=== PATIENT | female | born 1995 | race Caucasian/White ===

== ENCOUNTER 2018-02-25 12:11 | Emergency (ER) | payer OTHER ==
[2018-02-25] MEDS ORDERED: NS(*) 0.9% 1000 ML BAG 1,000 ML IV ONE (12:25)
[2018-02-25] MEDS ORDERED: ONDANSETRON 4 MG/2 ML VIAL IVP ONE (12:25)
[2018-02-25] MEDS ORDERED: TRAZ50TA34 PO (12:27)
[2018-02-25] MEDS ORDERED: ESCI20TA38 PO (12:27)
[2018-02-25] MEDS ORDERED: TOPI-120 PO (12:27)
[2018-02-25] MEDS ORDERED: MINO100C27 PO (12:27)
[2018-02-25] MEDS ORDERED: PANT40SU3 PO (12:27)
[2018-02-25] MEDS ORDERED: ARIP20TA11 PO (12:27)
[2018-02-25] MEDS ORDERED: ETHI1TAB20 PO (12:27)
--- NOTE | 2018-02-25 12:29 | ER Report ---
History and Physical Time Seen By MD: 12:25 HPI/ROS CHIEF COMPLAINT: Abdominal pain nausea HISTORY OF PRESENT ILLNESS: 22-year-old otherwise healthy female comes emergency Department today with pain and tenderness to the suprapubic region right upper quadrant and epigastric area several episodes of emesis only ate saltine crackers today no dysuria hematuria or pyuria scissor pain in the right upper quadrant is dull and aching has had this episodically for the last couple of weeks no fever chills or sweats again nausea without vomiting no diarrhea no loose vomiting movements patient states that she went to an outpatient care facility did some blood work determined she had an elevated lipase of 2000 patient states she's had no history of gallbladder disease or gallbladder disorders denies alcohol use or abuse patient has no additional complaints at this time REVIEW OF SYSTEMS: Respiratory: No cough, no dyspnea. Cardiovascular: No chest pain, no palpitations. Gastrointestinal: Nausea vomiting abdominal pain Musculoskeletal: No back pain. Remainder of the 14 system rev: Yes Allergies: Coded Allergies: Sulfa (Sulfonamide Antibiotics) (Verified Allergy, Intermediate, RASH, 02/25/18) Home Meds Reported Medications Topiramate (TOPAMAX) 50 Mg Tablet, 50 MG PO BID 02/25/18 Pantoprazole Sodium (PROTONIX) 40 Mg Granpkt.dr, 40 MG PO QDAY, PACK 02/25/18 Aripiprazole (ABILIFY) 20 Mg Tablet, 20 MG PO HS, TAB 02/25/18 Minocycline Hcl (MINOCYCLINE HCL) 100 Mg Capsule, 100 MG PO BID, CAPSULE 02/25/18 Trazodone Hcl (TRAZODONE HCL) 50 Mg Tablet, 50 MG PO QHS 02/25/18 Escitalopram Oxalate (LEXAPRO) 20 Mg Tablet, 20 MG PO QDAY, TAB 02/25/18 Ethinyl Estradiol/Drospirenone (OCELLA 3 MG-0.03 MG TABLET) 1 Each Tablet, 1 EACH PO DAILY 02/25/18 Reviewed Nurses Notes: Yes Old Medical Records Reviewed: Yes Constitutional Vital Sign - Last 24 Hours 02/25/18 02/25/18 02/25/18 02/25/18 12:11 12:16 12:17 12:30 Temp 98.3 Pulse 101 72 Resp 12 B/P (MAP) 128/76 (93) 128/76 117/79 (92) Pulse Ox 95 O2 Delivery Room Air 02/25/18 02/25/18 02/25/18 02/25/18 12:41 13:00 13:11 13:16 Pulse 99 91 89 B/P (MAP) 121/61 (81) Pulse Ox 96 100 99 O2 Delivery Room Air Room Air Room Air 02/25/18 02/25/18 02/25/18 02/25/18 13:45 13:46 14:00 14:16 Pulse 82 85 B/P (MAP) 121/78 (92) 114/72 (86) Pulse Ox 98 97 O2 Delivery Room Air Room Air Physical Exam General Appearance: The patient is alert, has no immediate need for airway protection and no current signs of toxicity. [ ] Eyes: Pupils equal and round no injection. Respiratory: Chest is non tender, lungs are clear to auscultation. Cardiac: regular rate and rhythm [ ] Gastrointestinal: Examinations demonstrates pain and tenderness with deep palpation in the right upper quadrant no rebound guarding or masses also pain without palpitation epigastric normal bowel sounds mild tenderness to the suprapubic region otherwise unremarkable examination Musculoskeletal: Neck: Neck is supple and non tender. Extremities have full range of motion and are non tender. Skin: No rashes or lesions. [ ] DIFFERENTIAL DIAGNOSIS: After history and physical exam differential diagnosis was considered for pancreatic has gallstone pancreatitis alcoholic pancreatitis urinary tract infection Medical Decision Making Data Points Result Diagram: 02/25/18 1259 02/25/18 1259 Laboratory Hematology Test 02/25/18 12:59 02/25/18 13:30 Red Blood Count 4.76 M/uL (4.17-5.56) Mean Corpuscular Volume 80.5 fL (80.0-96.0) Mean Corpuscular Hemoglobin 26.7 pg (26.0-33.0) Mean Corpuscular Hemoglobin Concent 33.2 g/dL (32.0-36.0) Red Cell Distribution Width 14.7 % (11.5-14.5) Mean Platelet Volume 8.0 fL (7.2-11.1) Neutrophils (%) (Auto) 64.1 % (39.4-72.5) Lymphocytes (%) (Auto) 23.4 % (17.6-49.6) Monocytes (%) (Auto) 11.5 % (4.1-12.4) Eosinophils (%) (Auto) 0.4 % (0.4-6.7) Basophils (%) (Auto) 0.6 % (0.3-1.4) Nucleated RBC Relative Count (auto) 0.1 /100WBC Neutrophils # (Auto) 5.0 K/uL (2.0-7.4) Lymphocytes # (Auto) 1.8 K/uL (1.3-3.6) Monocytes # (Auto) 0.9 K/uL (0.3-1.0) Eosinophils # (Auto) 0.0 K/uL (0.0-0.5) Basophils # (Auto) 0.0 K/uL (0.0-0.1) Nucleated RBC Absolute Count (auto) 0.01 K/uL Prothrombin Time 13.6 seconds (12.0-14.4) Prothromb Time International Ratio 1.04 Activated Partial Thromboplast Time 24 seconds (23-35) Sodium Level 138 mmol/L (137-145) Potassium Level 2.9 mmol/L (3.5-5.0) Chloride Level 106 mmol/L (98-107) Carbon Dioxide Level 22 mmol/L (22-31) Blood Urea Nitrogen 13 mg/dl (7-18) Creatinine 1.00 mg/dl (0.52-1.04) Glomerular Filtration Rate Calc > 60.0 Random Glucose 84 mg/dl (75-110) Calcium Level 8.1 mg/dl (8.4-10.2) Total Bilirubin 0.2 mg/dl (0.2-1.3) Aspartate Amino Transf (AST/SGOT) 22 U/L (0-35) Alanine Aminotransferase (ALT/SGPT) 36 U/L (0-56) Alkaline Phosphatase 98 U/L (0-126) Total Protein 5.6 g/dl (6.3-8.2) Albumin 2.9 g/dl (3.5-5.0) Lipase 1639 U/L (23-300) Serum Alcohol < 10 mg/dl Urine Color Pallavi Urine Clarity Slightly-cloudy Urine pH 5.0 pH (4.8-9.5) Urine Specific [place] 1.019 Urine Protein Negative mg/dL (NEGATIVE) Urine Glucose (UA) Negative mg/dL (NEGATIVE) Urine Ketones 20 mg/dL (NEGATIVE) Urine Blood Moderate (NEGATIVE) Urine Nitrite Negative (NEGATIVE) Urine Bilirubin Negative (NEGATIVE) Urine Urobilinogen Negative mg/dL (0.2-1.9) Urine Leukocyte Esterase Negative (NEGATIVE) Urine RBC 23 /HPF (0-2/HPF) Urine WBC 5 /HPF (0-5/HPF) Urine Squamous Epithelial Cells Many /LPF (</=FEW) Urine Transitional Epithelial Cells Few /LPF (NONE-FEW) Urine Bacteria Few /HPF (NONE-FEW) Urine Mucus Few /HPF (NONE-FEW) Urine HCG, Qualitative Negative (NEGATIVE) Chemistry Test 02/25/18 12:59 02/25/18 13:30 White Blood Count 7.8 k/uL (4.5-11.0) Red Blood Count 4.76 M/uL (4.17-5.56) Hemoglobin 12.7 g/dL (12.0-16.0) Hematocrit 38.3 % (34.0-47.0) Mean Corpuscular Volume 80.5 fL (80.0-96.0) Mean Corpuscular Hemoglobin 26.7 pg (26.0-33.0) Mean Corpuscular Hemoglobin Concent 33.2 g/dL (32.0-36.0) Red Cell Distribution Width 14.7 % (11.5-14.5) Platelet Count 284 K/uL (150-450) Mean Platelet Volume 8.0 fL (7.2-11.1) Neutrophils (%) (Auto) 64.1 % (39.4-72.5) Lymphocytes (%) (Auto) 23.4 % (17.6-49.6) Monocytes (%) (Auto) 11.5 % (4.1-12.4) Eosinophils (%) (Auto) 0.4 % (0.4-6.7) Basophils (%) (Auto) 0.6 % (0.3-1.4) Nucleated RBC Relative Count (auto) 0.1 /100WBC Neutrophils # (Auto) 5.0 K/uL (2.0-7.4) Lymphocytes # (Auto) 1.8 K/uL (1.3-3.6) Monocytes # (Auto) 0.9 K/uL (0.3-1.0) Eosinophils # (Auto) 0.0 K/uL (0.0-0.5) Basophils # (Auto) 0.0 K/uL (0.0-0.1) Nucleated RBC Absolute Count (auto) 0.01 K/uL Prothrombin Time 13.6 seconds (12.0-14.4) Prothromb Time International Ratio 1.04 Activated Partial Thromboplast Time 24 seconds (23-35) Glomerular Filtration Rate Calc > 60.0 Calcium Level 8.1 mg/dl (8.4-10.2) Total Bilirubin 0.2 mg/dl (0.2-1.3) Aspartate Amino Transf (AST/SGOT) 22 U/L (0-35) Alanine Aminotransferase (ALT/SGPT) 36 U/L (0-56) Alkaline Phosphatase 98 U/L (0-126) Total Protein 5.6 g/dl (6.3-8.2) Albumin 2.9 g/dl (3.5-5.0) Lipase 1639 U/L (23-300) Serum Alcohol < 10 mg/dl Urine Color Pallavi Urine Clarity Slightly-cloudy Urine pH 5.0 pH (4.8-9.5) Urine Specific [place] 1.019 Urine Protein Negative mg/dL (NEGATIVE) Urine Glucose (UA) Negative mg/dL (NEGATIVE) Urine Ketones 20 mg/dL (NEGATIVE) Urine Blood Moderate (NEGATIVE) Urine Nitrite Negative (NEGATIVE) Urine Bilirubin Negative (NEGATIVE) Urine Urobilinogen Negative mg/dL (0.2-1.9) Urine Leukocyte Esterase Negative (NEGATIVE) Urine RBC 23 /HPF (0-2/HPF) Urine WBC 5 /HPF (0-5/HPF) Urine Squamous Epithelial Cells Many /LPF (</=FEW) Urine Transitional Epithelial Cells Few /LPF (NONE-FEW) Urine Bacteria Few /HPF (NONE-FEW) Urine Mucus Few /HPF (NONE-FEW) Urine HCG, Qualitative Negative (NEGATIVE) Coagulation Test 02/25/18 12:59 Prothrombin Time 13.6 seconds Prothromb Time International Ratio 1.04 Activated Partial Thromboplast Time 24 seconds Toxicology Test 02/25/18 12:59 Serum Alcohol < 10 mg/dl Urinalysis Test 02/25/18 13:30 Urine Color Pallavi Urine Clarity Slightly-cloudy Urine pH 5.0 pH (4.8-9.5) Urine Specific [place] 1.019 Urine Protein Negative mg/dL (NEGATIVE) Urine Glucose (UA) Negative mg/dL (NEGATIVE) Urine Ketones 20 mg/dL (NEGATIVE) Urine Blood Moderate (NEGATIVE) Urine Nitrite Negative (NEGATIVE) Urine Bilirubin Negative (NEGATIVE) Urine Urobilinogen Negative mg/dL (0.2-1.9) Urine Leukocyte Esterase Negative (NEGATIVE) Urine RBC 23 /HPF (0-2/HPF) Urine WBC 5 /HPF (0-5/HPF) Urine Squamous Epithelial Cells Many /LPF (</=FEW) Urine Transitional Epithelial Cells Few /LPF (NONE-FEW) Urine Bacteria Few /HPF (NONE-FEW) Urine Mucus Few /HPF (NONE-FEW) Urine HCG, Qualitative Negative (NEGATIVE) ED Course/Re-evaluation ED Course Clinical course medical decision making 22-year-old female with abdominal discomfort no sign of UTI she does have colitis confirmed on a CT scan and elevated lipase consistent with idiopathic pancreatitis advised her to to decreased by mouth intake clear fluids she's able to tolerate by mouth started on Flagyl for her colitis and follow with primary care Decision to Disposition Date: Feb 25, 2018 Decision to Disposition Time: 15:02 Depart Departure Latest Vital Signs Vital Signs Date Time Temp Pulse Resp B/P (MAP) Pulse Ox O2 Delivery O2 Flow Rate FiO2 02/25/18 14:16 85 97 Room Air 02/25/18 14:00 114/72 (86) 02/25/18 12:17 98.3 12 Impression: Primary Impression: Pancreatitis Additional Impression: Colitis Condition: Improved Disposition: HOME OR SELF-CARE Referrals: LISA PETERS [employer] 5 Days New Scripts Metronidazole (FLAGYL) 500 Mg Tablet 500 MG PO BID for 7 Days, #14 TAB Prov: BERTO NÚÑEZ MD 02/25/18 Patient Instructions: Colitis (ED), Pancreatitis (DC) Problem Qualifiers BERTO NÚÑEZ MD Feb 25, 2018 12:29
[2018-02-25 13:12] LABS: PLATELET COUNT, AUTOMATED 284 K/uL (150-450)
[2018-02-25 13:23] LABS: INR 1.04
[2018-02-25] MEDS ORDERED: NS(*) 0.9% 1000 ML BAG 1,000 ML IV PRN (13:30)
[2018-02-25] MEDS ORDERED: POTASSIUM CHL 20 MEQ TABCR PO ONE (13:35)
--- NOTE | 2018-02-25 13:47 | RADIOLOGY IMAGING REPORT ---
FACILITY: [facility] - [place] PATIENT NAME: Samra Vogel : 1995 MR: [id number] V: [id number] EXAM DATE: ORDERING PHYSICIAN: BERTO NÚÑEZ TECHNOLOGIST: Location: [facility] - [place] Patient: Samra Vogel : 1995 Visit/Account:[id number] Date of Sevice: 02/25/2018 GALLBLADDER HISTORY: pain COMPARISON: None. FINDINGS: Gallbladder: Unremarkable; no stones or sludge. Liver: Negative. Common duct: Normal, 2.8 mm diameter. Pancreas: Partially obscured by bowel, visualized aspects unremarkable. Right kidney: Right kidney appears unremarkable measuring 8.7 cm in length Upper abdominal aorta and IVC: Patent. Ascites: None visualized. IMPRESSION: Unremarkable right upper quadrant ultrasound Report Dictated By: Fouzia Carrizales MD at 02/25/2018 1:41 PM Report E-Signed By: Fouzia Carrizales MD at 02/25/2018 1:43 PM WSN:[email or web address]
[2018-02-25 14:00] VITALS: BP 114/72
--- NOTE | 2018-02-25 14:07 | RADIOLOGY IMAGING REPORT ---
FACILITY: [facility] PATIENT NAME: Samra Vogel : 1995 MR: [id number] V: [id number] EXAM DATE: ORDERING PHYSICIAN: BERTO NÚÑEZ TECHNOLOGIST: Location: [facility] - [place] Patient: Samra Vogel : 1995 Visit/Account:[id number] Date of Sevice: 02/25/2018 Exam type: CHEST PA AND LAT History: Abdomen pain Comparison: None. Findings: The lungs are free of acute effusions, infiltrates or edema. Cardiac silhouette is normal in size. The trachea is midline. Visualized bones are grossly unremarkable. IMPRESSION: 1. No acute cardiopulmonary process is seen Report Dictated By: Fouzia Carrizales MD at 02/25/2018 2:02 PM Report E-Signed By: Fouzia Carrizales MD at 02/25/2018 2:02 PM WSN:[email or web address]
[2018-02-25] MEDS ORDERED: IOPAMIDOL 76% 75 ML INFUS BTL 75 ML ONE (14:24)
--- NOTE | 2018-02-25 14:51 | RADIOLOGY IMAGING REPORT ---
[facility] PATIENT NAME: Samra Vogel : 1995 MR: [id number] V: [id number] EXAM DATE: ORDERING PHYSICIAN: BERTO NÚÑEZ TECHNOLOGIST: Location: [facility] - [place] Patient: Samra Vogel : 1995 Visit/Account:[id number] Date of Sevice: 02/25/2018 ABDOMEN/PELVIS WITH CONTRAST HISTORY: Abdomen pain TECHNIQUE: Following administration of IV contrast contiguous axial images acquired through the abdom en/pelvis. Coronal and sagittal reformatting also performed.Dose Lowering Technique One of the following dose optimization techniques was utilized in the performance of this exam: Autom ated exposure control; adjustment of the mA and/or kV according to the patient's size; or use of an i terative reconstruction technique. Specific details can be referenced in the facility's radiology C T exam operational policy. CONTRAST: 75 mL Isovue-370 COMPARISON: Gallbladder ultrasound performed today FINDINGS: Visualized lung bases: Negative. Hepatobiliary: There is diffuse hepatic steatosis Spleen: Negative. Adrenals: Negative. Pancreas: Negative. Kidneys ureters or bladder: Tiny subcentimeter hypodensities in both kidneys likely represent cysts a lthough are too small to characterize by CT Genitalia: Negative. GI: There is enhancement and thickening of the wall of the colon diffusely which is most prominent i n the right-sided the colon and transverse colon although is present the left-sided colon as well. The appendix is visualized and does not appear inflamed Vessels/spaces/nodes: There shotty retroperitoneal lymph nodes Bones/soft tissues: Negative. Additional findings: None pertinent. IMPRESSION: There is enhancement and wall thickening seen diffusely throughout colon which is most prominent in t he right side and transverse colon although is present in the left-sided colon as well. These findin gs are consistent with colitis. Report Dictated By: Fouzia Carrizales MD at 02/25/2018 2:42 PM Report E-Signed By: Fouzia Carrizales MD at 02/25/2018 2:47 PM WSN:[email or web address]
[2018-02-25] MEDS ORDERED: METR-1 PO (15:03)
== END 2018-02-25 15:15 | disposition home or self-care (01) ==
LOC: EDBD 12:11 → ER 12:28
DX: K85.90 Acute pancreatitis without necrosis or infection, unspecified (principal); K52.9 Noninfective gastroenteritis and colitis, unspecified
CPT/HCPCS: 36415; 71046; 74177; 76705; 80320; 81001; 81025; 83690; 85025; 85610; 85730; 96361; 96374; 99285; J2405; J7030; Q9967; 82040; 82247; 82310; 82374; 82435; 82565; 82947; 84075; 84132; 84155; 84295; 84450; 84460; 84520

== ENCOUNTER 2018-03-01 19:40 | Inpatient (IN) | payer OTHER ==
[~2018-03-01] VITALS: Ht 157.5 cm; Wt 72.1 kg
[~2018-03-01 19:40] MED LIST: ARIP20TA11 PO; ESCI20TA38 PO; ETHI1TAB20 PO; METR-1 PO; MINO100C27 PO; PANT40SU3 PO; TOPI-120 PO; TRAZ50TA34 PO
--- NOTE | 2018-03-01 20:10 | ER Report ---
History and Physical Time Seen By MD: 20:10 Hx. of Stated Complaint: Patient stated she was diagnosed with pancreatitis on Friday, and has had irretractable vomiting starting about 1 hour ago HPI/ROS CHIEF COMPLAINT: Vomiting HISTORY OF PRESENT ILLNESS: 22-year-old female with pancreatitis and colitis, currently taking Flagyl and Zofran presents back to the ER with continued vomiting today. She's been seen at urgent care twice and in the ER once. She was seen here 4 days ago, had an extensive evaluation including a CT scan and an ultrasound. She is diagnosed with colitis and pancreatitis. He was placed on Flagyl. She's been on clear liquid diet until tonight when she tried to advance to some chicken broth. She notes no increase in her abdominal pain. REVIEW OF SYSTEMS: Respiratory: No cough, no dyspnea. Cardiovascular: No chest pain, no palpitations. Gastrointestinal: As above Musculoskeletal: No back pain. Allergies: Coded Allergies: Sulfa (Sulfonamide Antibiotics) (Verified Allergy, Intermediate, RASH, 03/01/18) Home Meds Active Scripts Metronidazole (FLAGYL) 500 Mg Tablet, 500 MG PO BID for 7 Days, #14 TAB Prov:BERTO NÚÑEZ MD 02/25/18 Reported Medications Topiramate (TOPAMAX) 50 Mg Tablet, 50 MG PO BID 02/25/18 Pantoprazole Sodium (PROTONIX) 40 Mg Granpkt.dr, 40 MG PO QDAY, PACK 02/25/18 Aripiprazole (ABILIFY) 20 Mg Tablet, 20 MG PO HS, TAB 02/25/18 Minocycline Hcl (MINOCYCLINE HCL) 100 Mg Capsule, 100 MG PO BID, CAPSULE 02/25/18 Trazodone Hcl (TRAZODONE HCL) 50 Mg Tablet, 50 MG PO QHS 02/25/18 Escitalopram Oxalate (LEXAPRO) 20 Mg Tablet, 20 MG PO QDAY, TAB 02/25/18 Ethinyl Estradiol/Drospirenone (OCELLA 3 MG-0.03 MG TABLET) 1 Each Tablet, 1 EACH PO DAILY 02/25/18 Past Medical/Surgical History Pancreatitis, colitis Reviewed Nurses Notes: Yes Old Medical Records Reviewed: Yes Hx Substance Use Disorder: No Hx Alcohol Use: No Constitutional Vital Sign - Last 24 Hours 03/01/18 03/01/18 03/01/18 03/01/18 19:49 19:50 20:30 21:00 Temp 98.0 Pulse 70 93 67 70 Resp 19 B/P (MAP) 120/67 (84) 120/67 Pulse Ox 97 98 96 98 O2 Delivery Room Air Room Air 03/01/18 03/01/18 21:30 22:11 Pulse 68 71 B/P (MAP) 102/63 (76) Pulse Ox 94 Physical Exam Vital signs stable, afebrile, pulse ox normal General Appearance: The patient is alert, has no immediate need for airway protection and no current signs of toxicity., Pale appearing, skin warm and dry HEENT: Pupils equal and round no injection. Anicteric sclera, oropharynx without redness or exudate, mucous members are moist Respiratory: Chest is non tender, lungs are clear to auscultation. Cardiac: regular rate and rhythm Gastrointestinal: Abdomen is soft and non tender, no masses, bowel sounds normal. Musculoskeletal: Neck: Neck is supple and non tender. No lymphadenopathy Extremities have full range of motion and are non tender. Skin: No rashes or lesions. DIFFERENTIAL DIAGNOSIS: After history and physical exam differential diagnosis was considered for abdominal pain including but not limited to appendicitis, cholecystitis, gastritis, pancreatitis, colitis and urinary tract infection. Medical Decision Making Data Points Result Diagram: 03/01/18203903/01/182039 Laboratory Hematology Test 03/01/18 19:48 03/01/18 20:40 Urine Color Pallavi Urine Clarity Clear Urine pH 5.0 pH (4.8-9.5) Urine Specific [place] 1.023 Urine Protein Negative mg/dL (NEGATIVE) Urine Glucose (UA) Negative mg/dL (NEGATIVE) Urine Ketones Trace mg/dL (NEGATIVE) Urine Blood Negative (NEGATIVE) Urine Nitrite Negative (NEGATIVE) Urine Bilirubin Negative (NEGATIVE) Urine Urobilinogen Negative mg/dL (0.2-1.9) Urine Leukocyte Esterase Trace (NEGATIVE) Urine RBC None /HPF (0-2/HPF) Urine WBC 6 /HPF (0-5/HPF) Urine Squamous Epithelial Cells Few /LPF (</=FEW) Urine Calcium Oxalate Crystals Few /HPF (NONE) Urine Bacteria Moderate /HPF (NONE-FEW) Urine Mucus Few /HPF (NONE-FEW) Red Blood Count 5.39 M/uL (4.17-5.56) Mean Corpuscular Volume 80.0 fL (80.0-96.0) Mean Corpuscular Hemoglobin 26.8 pg (26.0-33.0) Mean Corpuscular Hemoglobin Concent 33.6 g/dL (32.0-36.0) Red Cell Distribution Width 15.0 % (11.5-14.5) Mean Platelet Volume 8.2 fL (7.2-11.1) Neutrophils (%) (Auto) 75.4 % (39.4-72.5) Lymphocytes (%) (Auto) 14.7 % (17.6-49.6) Monocytes (%) (Auto) 7.5 % (4.1-12.4) Eosinophils (%) (Auto) 0.0 % (0.4-6.7) Basophils (%) (Auto) 2.4 % (0.3-1.4) Nucleated RBC Relative Count (auto) 0.0 /100WBC Neutrophils # (Auto) 6.6 K/uL (2.0-7.4) Lymphocytes # (Auto) 1.3 K/uL (1.3-3.6) Monocytes # (Auto) 0.7 K/uL (0.3-1.0) Eosinophils # (Auto) 0.0 K/uL (0.0-0.5) Basophils # (Auto) 0.2 K/uL (0.0-0.1) Nucleated RBC Absolute Count (auto) 0.00 K/uL Peripheral Blood Smear Yes Y/N Erythrocyte Sedimentation Rate 5 mm/HOUR (0-20) Sodium Level 140 mmol/L (137-145) Potassium Level 3.3 mmol/L (3.5-5.0) Chloride Level 109 mmol/L (98-107) Carbon Dioxide Level 18 mmol/L (22-31) Blood Urea Nitrogen 11 mg/dl (7-18) Creatinine 0.80 mg/dl (0.52-1.04) Glomerular Filtration Rate Calc > 60.0 Random Glucose 94 mg/dl (75-110) Lactate 1.2 mmol/L (0.7-2.1) Calcium Level 8.8 mg/dl (8.4-10.2) Total Bilirubin 0.4 mg/dl (0.2-1.3) Aspartate Amino Transf (AST/SGOT) 28 U/L (0-35) Alanine Aminotransferase (ALT/SGPT) 36 U/L (0-56) Alkaline Phosphatase 107 U/L (0-126) C-Reactive Protein 0.8 mg/dl (<1.0) Total Protein 6.1 g/dl (6.3-8.2) Albumin 3.0 g/dl (3.5-5.0) Amylase Level 215 U/L (0-110) Lipase 2758 U/L (23-300) Chemistry Test 03/01/18 19:48 03/01/18 20:40 Urine Color Pallavi Urine Clarity Clear Urine pH 5.0 pH (4.8-9.5) Urine Specific [place] 1.023 Urine Protein Negative mg/dL (NEGATIVE) Urine Glucose (UA) Negative mg/dL (NEGATIVE) Urine Ketones Trace mg/dL (NEGATIVE) Urine Blood Negative (NEGATIVE) Urine Nitrite Negative (NEGATIVE) Urine Bilirubin Negative (NEGATIVE) Urine Urobilinogen Negative mg/dL (0.2-1.9) Urine Leukocyte Esterase Trace (NEGATIVE) Urine RBC None /HPF (0-2/HPF) Urine WBC 6 /HPF (0-5/HPF) Urine Squamous Epithelial Cells Few /LPF (</=FEW) Urine Calcium Oxalate Crystals Few /HPF (NONE) Urine Bacteria Moderate /HPF (NONE-FEW) Urine Mucus Few /HPF (NONE-FEW) White Blood Count 8.7 k/uL (4.5-11.0) Red Blood Count 5.39 M/uL (4.17-5.56) Hemoglobin 14.5 g/dL (12.0-16.0) Hematocrit 43.1 % (34.0-47.0) Mean Corpuscular Volume 80.0 fL (80.0-96.0) Mean Corpuscular Hemoglobin 26.8 pg (26.0-33.0) Mean Corpuscular Hemoglobin Concent 33.6 g/dL (32.0-36.0) Red Cell Distribution Width 15.0 % (11.5-14.5) Platelet Count 299 K/uL (150-450) Mean Platelet Volume 8.2 fL (7.2-11.1) Neutrophils (%) (Auto) 75.4 % (39.4-72.5) Lymphocytes (%) (Auto) 14.7 % (17.6-49.6) Monocytes (%) (Auto) 7.5 % (4.1-12.4) Eosinophils (%) (Auto) 0.0 % (0.4-6.7) Basophils (%) (Auto) 2.4 % (0.3-1.4) Nucleated RBC Relative Count (auto) 0.0 /100WBC Neutrophils # (Auto) 6.6 K/uL (2.0-7.4) Lymphocytes # (Auto) 1.3 K/uL (1.3-3.6) Monocytes # (Auto) 0.7 K/uL (0.3-1.0) Eosinophils # (Auto) 0.0 K/uL (0.0-0.5) Basophils # (Auto) 0.2 K/uL (0.0-0.1) Nucleated RBC Absolute Count (auto) 0.00 K/uL Peripheral Blood Smear Yes Y/N Erythrocyte Sedimentation Rate 5 mm/HOUR (0-20) Glomerular Filtration Rate Calc > 60.0 Lactate 1.2 mmol/L (0.7-2.1) Calcium Level 8.8 mg/dl (8.4-10.2) Total Bilirubin 0.4 mg/dl (0.2-1.3) Aspartate Amino Transf (AST/SGOT) 28 U/L (0-35) Alanine Aminotransferase (ALT/SGPT) 36 U/L (0-56) Alkaline Phosphatase 107 U/L (0-126) C-Reactive Protein 0.8 mg/dl (<1.0) Total Protein 6.1 g/dl (6.3-8.2) Albumin 3.0 g/dl (3.5-5.0) Amylase Level 215 U/L (0-110) Lipase 2758 U/L (23-300) Urinalysis Test 03/01/18 19:48 Urine Color Pallavi Urine Clarity Clear Urine pH 5.0 pH (4.8-9.5) Urine Specific [place] 1.023 Urine Protein Negative mg/dL (NEGATIVE) Urine Glucose (UA) Negative mg/dL (NEGATIVE) Urine Ketones Trace mg/dL (NEGATIVE) Urine Blood Negative (NEGATIVE) Urine Nitrite Negative (NEGATIVE) Urine Bilirubin Negative (NEGATIVE) Urine Urobilinogen Negative mg/dL (0.2-1.9) Urine Leukocyte Esterase Trace (NEGATIVE) Urine RBC None /HPF (0-2/HPF) Urine WBC 6 /HPF (0-5/HPF) Urine Squamous Epithelial Cells Few /LPF (</=FEW) Urine Calcium Oxalate Crystals Few /HPF (NONE) Urine Bacteria Moderate /HPF (NONE-FEW) Urine Mucus Few /HPF (NONE-FEW) ED Course/Re-evaluation Clinical Indication for ER IV: Hydration, IV Access ED Course Patient was admitted to an examination room. H&P was done. The differential diagnoses was considered. On conical examination. Patient has continued vomiting and abdominal discomfort. He was diagnosed with mild pancreatitis and colitis. She's been on Flagyl 500 mg twice daily. She states his Zofran no longer is controlling her vomiting. She tried some Benadryl without improvement. She presents to the ER for further evaluation of her persistent vomiting. Patient's treated with IV fluid hydration, Zofran 8 mg and Phenergan 12-05/13. Her vomiting is controlled. She feels much better with fluids. Repeat diagnostic studies show a almost doubling of her lipase 2800, from 1600. Her case is discussed with the hospitalist on-call, who accepts the patient for admission for further IV treatment and bowel rest. 03/01/2018 9:38:10 pm case discussed with Dr. Phillips who accepts the pa tient for admission for IV hydration and bowel rest. Decision to Disposition Date: Mar 01, 2018 Decision to Disposition Time: 21:37 Depart Departure Latest Vital Signs Vital Signs Date Time Temp Pulse Resp B/P (MAP) Pulse Ox O2 Delivery O2 Flow Rate FiO2 03/01/18 22:11 71 102/63 (76) 03/01/18 21:30 94 03/01/18 19:50 98.0 19 Room Air Impression: Primary Impression: Pancreatitis Additional Impressions: Colitis Vomiting Condition: Improved Disposition: HOME OR SELF-CARE Referrals: CAROLINA HANSON (PCP) Problem Qualifiers Primary Impression: Pancreatitis Chronicity: acute Pancreatitis type: unspecified pancreatitis type Acute pancreatitis complication: unspecified Qualified Codes: K85.90 - Acute pancreatitis without necrosis or infection, unspecified Additional Impressions: Vomiting Vomiting type: unspecified Vomiting Intractability: unspecified Nausea presence: with nausea Qualified Codes: R11.2 - Nausea with vomiting, unspecified BART BERGER DO Mar 01, 2018 20:10
[2018-03-01] MEDS ORDERED: ONDANSETRON 4 MG/2 ML VIAL IVP ONE (20:20)
[2018-03-01] MEDS ORDERED: NS(*) 0.9% 1000 ML BAG 1,000 ML IV ONE (20:20)
[2018-03-01] MEDS ORDERED: PROMETHAZINE 25 MG/ML 1 ML AMP IVP ONE (20:20)
[2018-03-01 20:56] LABS: PLATELET COUNT, AUTOMATED 299 K/uL (150-450)
[2018-03-01 22:34] VITALS: BP 108/66
[2018-03-01] MEDS ORDERED: ONDANSETRON 4 MG/2 ML VIAL IVP PRN (23:15)
[2018-03-01] MEDS ORDERED: FLUSH 10 ML SYR IVP PRN (23:15)
[2018-03-01] MEDS ORDERED: NALOXONE HCL 0.4 MG/ML VIAL IVP PRN (23:15)
[2018-03-01] MEDS ORDERED: HYDROmorphone HCL 2 MG/ML SDV IVP PRN (23:15)
[2018-03-01] MEDS ORDERED: INFLUENZA VIRUS VAC 0.5ML SYR IM ONLY ONE (23:15)
[2018-03-02] MEDS: LR(*) 1000 ML BAG 1,000 ML IV PRN ×3 (00:02→22:53)
--- NOTE | 2018-03-02 00:53 | History & Physical ---
History of Present Illness Chief Complaint nausea/vomiting History of Present Illness 22F with PMHx significant for acne, anxiety/depression presented with worsening n/v. Diagnosed 02.25.2018 with pancreatitis, she was able to tolerate PO intake until prior to admission when n/v worsened. Denies significant abdominal pain but lipase approx 2800, CT from prior admission showed changes of acute pancreatitis and lisa colitis. Reports some bloody stool in ER, bouts of occasional diarrhea. Denies any symptoms of biliary colic before presenting with abdominal pain on . Denies EtOH, previous US was negative for stones or ductal dilatation. No family Hx of pancreatitis. History Problems: (1) Depression Home Meds Active Scripts Metronidazole (FLAGYL) 500 Mg Tablet, 500 MG PO BID for 7 Days, #14 TAB Prov:BERTO NÚÑEZ MD 02/25/18 Reported Medications Topiramate (TOPAMAX) 50 Mg Tablet, 50 MG PO BID 02/25/18 Pantoprazole Sodium (PROTONIX) 40 Mg Granpkt.dr, 40 MG PO QDAY, PACK 02/25/18 Aripiprazole (ABILIFY) 20 Mg Tablet, 20 MG PO HS, TAB 02/25/18 Minocycline Hcl (MINOCYCLINE HCL) 100 Mg Capsule, 100 MG PO BID, CAPSULE 02/25/18 Trazodone Hcl (TRAZODONE HCL) 50 Mg Tablet, 50 MG PO QHS 02/25/18 Escitalopram Oxalate (LEXAPRO) 20 Mg Tablet, 20 MG PO QDAY, TAB 02/25/18 Ethinyl Estradiol/Drospirenone (OCELLA 3 MG-0.03 MG TABLET) 1 Each Tablet, 1 EACH PO DAILY 02/25/18 Allergies: Coded Allergies: Sulfa (Sulfonamide Antibiotics) (Verified Allergy, Intermediate, RASH, 03/01/18) Patient History: FH: depression MOTHER FH: heart disease FATHER MOTHER FH: hyperlipidemia MOTHER FH: leukemia BROTHER OR SISTER Hx Smoking: No Exposure to Second Hand Smoke?: No Caffeine Intake: Coffee, Tea Caffeine/Cups Per Day: 4 cups Hx Alcohol Use: Yes Hx Substance Use Disorder: No Social Drug Use: Currently Social Drugs: Marijuana History of IV Drug Use: No Review of Systems Constitutional: No Weight Loss Cardiovascular: No Chest Pain Respiratory: No Shortness of Breath Gastrointestinal: Nausea, Vomiting, Abdominal Pain Exam Vital Signs Vital Signs Date Time Temp Pulse Resp B/P (MAP) Pulse Ox O2 Delivery O2 Flow Rate FiO2 03/01/18 22:34 98.6 71 16 108/66 (80) 98 Room Air General Appearance: Alert, Awake, No Acute Distress Neuro: No Gross deficits Eyes: PERRLA ENT: Normal Neck: No Masses Cardiovascular: Normal Rhythm & Peripheral Pulses Respiratory: No Respiratory Distress GI: Abd Soft and Non-Tender (mild tenderness to palpation, decreased bowel sounds) Musculoskeletal: No Weakness/Pain Extremities: Soft and Non Tender, Warm, Pulses, Perfused; No Edema Integumentary: Skin Intact without Lesion / Mass Psych: Alert & Oriented X3 Medical Decision Making Data Points Result Diagram: 03/01/18203903/01/182039 Assessment and Plan Problems: (1) Pancreatitis Status: Acute Assessment & Plan: Unclear etiology, GRINDSTONE II score 1, repeat abdominal US to recheck for CBD stones or gallstones. Provide IV hydration and pain control. Clear liquid diet and ADAT. Genetic testing ordered likely 30 days turnaround, MRCP pending to evaluate for structural abnormalities. (2) Colitis Status: Acute Assessment & Plan: Possible inflammatory vs infectious. Medically patient is stable, no immediate indication for Abx. Will get stool Cx and monitor. CT imaging suspicious with pancolitis and hepatosteatosis in setting of pancreatitis without evidence of gallstones for inflammatory bowel disease. No family Hx IBD. (3) Vomiting Status: Acute Assessment & Plan: Improved with anti emetics. (4) Depression Assessment & Plan: Continue Lexapro, trazodone, Abilify. Venous Thromboembolism Antithrombotics Is Pt On Any Antithrombotics?: No Prophylaxis Tx Contraindicated Pharmacological Contraindicati: Active Bleeding Exam Sepsis Risk: No Definite Risk Problem Qualifiers (1) Pancreatitis: Chronicity: acute Pancreatitis type: idiopathic Acute pancreatitis complication: no infection or necrosis Qualified Codes: K85.00 - Idiopathic acute pancreatitis without necrosis or infection ZENA MARTÍNEZVARUN DO Mar 02, 2018 00:32
[2018-03-02] MEDS: KCL (*) 20 MEQ/100 ML PREMIX 100 ML IV SCH ×2 (01:44→03:42)
[2018-03-02 03:44] VITALS: BP 102/56
[2018-03-02 06:36] LABS: PLATELET COUNT, AUTOMATED 244 K/uL (150-450)
[2018-03-02 06:48] VITALS: BP 92/51
[2018-03-02] MEDS ORDERED: MINOCYCLINE HCL 100 MG CAP PO SCH (09:00)
[2018-03-02] MEDS ORDERED: PATIENT'S OWN MED PO SCH (09:00)
[2018-03-02] MEDS ORDERED: NS(*) 0.9% 50 ML BAG 50 ML ONE (09:11)
[2018-03-02] MEDS ORDERED: GADOBENATE 529MG/1ML 15ML VIAL IVP ONE (09:11)
--- NOTE | 2018-03-02 09:21 | RADIOLOGY IMAGING REPORT ---
FACILITY: PATIENT NAME: Sarma Vogel : 1995 MR: [id number] V: [id number] EXAM DATE: ORDERING PHYSICIAN: VARUN MARTÍNEZ TECHNOLOGIST: Location: [facility] [place] Patient: Samra Vogel : 1995 Visit/Account:[id number] Date of Sevice: 03/02/2018 GALLBLADDER HISTORY: pancreatitis COMPARISON: None. FINDINGS: Liver: Suggestion of mild hepatic steatosis. Otherwise negative. Gallbladder: Unremarkable; no stones or sludge. Common duct: Normal, 3 mm diameter. Pancreas: Appears somewhat echogenic and otherwise unremarkable. Right kidney: Negative. Upper abdominal aorta and IVC: Patent. Ascites: None visualized. IMPRESSION: 1. No acute findings. 2. Nonspecific slight increased echogenicity of the pancreas. 3. Possible mild hepatic steatosis. Report Dictated By: Juan Griffith MD at 03/02/2018 9:16 AM Report E-Signed By: Juan Griffith MD at 03/02/2018 9:17 AM [id number]
[2018-03-02] MEDS: PANTOPRAZOLE SOD 40 MG IV VIAL IVP SCH (10:58)
[2018-03-02] MEDS: ESCITALOPRAM OXALATE 10 MG TAB PO SCH (10:59)
[2018-03-02] MEDS: TOPIRAMATE 25 MG TAB PO SCH ×2 (10:59→21:38)
--- NOTE | 2018-03-02 11:37 | RADIOLOGY IMAGING REPORT ---
FACILITY: [facility] [place] PATIENT NAME: Samra Vogel : 1995 MR: [id number] V: [id number] EXAM DATE: ORDERING PHYSICIAN: VARUN MARTÍNEZ TECHNOLOGIST: Location: [facility] Patient: Samra Vogel : 1995 Visit/Account:[id number] Date of Sevice: 03/02/2018 MRI CHOLANGIOPANCREAT W/WO CON HISTORY: Pancreatitis TECHNIQUE: Multiplanar multisequence magnetic resonance imaging of the abdomen with and without intr avenous contrast including magnetic resonance cholangiopancreatography (MRCP). CONTRAST: 15 mL of MultiHance COMPARISON: CT abdomen and pelvis February 25, 2018 FINDINGS: Visualized lung bases: Grossly unremarkable. Liver: Negative. Gallbladder: Negative. Bile ducts: Nondistended and unremarkable. Spleen: Negative. Adrenal glands: Negative. Pancreas: Negative. Kidneys: Negative. Vessels/spaces/nodes: No bulky adenopathy or ascites. Visualized GI: There is thickening of the wall of the right side of the colon and transverse colon sl ightly improved when compared the prior study. The left-sided colon appears much less thickened. Bones/soft tissues: Unremarkable. IMPRESSION: Pancreas and biliary tree appear unremarkable There is thickening of the wall of the right side of the colon and transverse colon which is slightly improved when compared the prior study. The left-sided colon appears much less thickened. These ch anges are still concerning for colitis. Report Dictated By: Fouzia Carrizales MD at 03/02/2018 11:18 AM Report E-Signed By: Fouzia Carrizales MD at 03/02/2018 11:32 AM [email or web address]
[2018-03-02 11:42] VITALS: BP 114/74
[2018-03-02 12:44] VITALS: Ht 157.5 cm; Wt 72.1 kg
[2018-03-02] MEDS: ESTRADIOL/NORETHINDR ACETATE 1 EA TAB PO SCH (14:20)
[2018-03-02] MEDS: PROMETHAZINE 25 MG/ML 1 ML AMP IVP PRN (17:37)
[2018-03-02 19:44] VITALS: BP 104/63
[2018-03-02] MEDS: traZODone HCL 50 MG TAB PO SCH (21:37)
[2018-03-02] MEDS: ARIPiprazole 10 MG TAB PO SCH (21:38)
[2018-03-02 22:51] VITALS: BP 96/60
[2018-03-03 05:53] LABS: PLATELET COUNT, AUTOMATED 248 K/uL (150-450)
[2018-03-03] MEDS: PROMETHAZINE 25 MG/ML 1 ML AMP IVP PRN ×2 (05:53→16:50)
[2018-03-03 07:36] VITALS: BP 108/61
[2018-03-03] MEDS: ESCITALOPRAM OXALATE 10 MG TAB PO SCH (09:59)
[2018-03-03] MEDS: PANTOPRAZOLE SOD 40 MG IV VIAL IVP SCH (10:00)
[2018-03-03] MEDS: ESTRADIOL/NORETHINDR ACETATE 1 EA TAB PO SCH (10:01)
[2018-03-03] MEDS: TOPIRAMATE 25 MG TAB PO SCH ×2 (10:01→20:51)
--- NOTE | 2018-03-03 10:29 | Hospitalist Progress Note ---
Subjective Progress Notes Subjective This patient was admitted for diarrhea and vomiting. She had no acute events overnight. Patient Complains of: Cardiovascular: No: Chest Pain Respiratory: No: Shortness of Breath Physical Exam Vital Signs Date Time Temp Pulse Resp B/P (MAP) Pulse Ox O2 Delivery O2 Flow Rate FiO2 03/02/18 22:51 98.9 75 14 96/60 (72) 97 Room Air Intake and Output 03/03/18 06:59 Intake Total 1340 ml Balance 1340 ml Intake Oral 340 ml IV Total 1000 ml # Voids 4 # Bowel Movements 3 # Emeses 2 Cardiovascular: Regular Rate and Rhythm Respiratory: Clear to Auscultation GI: Soft and Non-Tender Result Diagram: 03/03/18 0543 03/03/18 0543 Item Value Date Time Lipase 1938 U/L H 03/03/[address] scan and MRI reviewed. Assessment and Plan Problems: (1) Pancreatitis Status: Acute Assessment & Plan: She does have an elevated lipase level, but her CT scan does not show any findings consistent with pancreatitis. Her levels increased overnight after starting clear liquids, but there has been no change in her symptoms. We will continue to advance her diet as tolerated by symptoms. (2) Colitis Status: Acute Assessment & Plan: Her CT scan did show findings consistent with a diffuse colitis. However, her inflammatory markers are negative and infectious studies have also been negative. Her MRI did show some improvement. Dr. Reyes did discuss her case with gastroenterology, but no further recommendations were re ceived. She will likely require a colonoscopy and biopsy to rule out underlying inflammatory bowel disease. (3) Vomiting Status: Acute Assessment & Plan: Improved with anti emetics. (4) Depression Assessment & Plan: Continue Lexapro, trazodone, Abilify. Exam Sepsis Risk: No Definite Risk Problem Qualifiers (1) Pancreatitis: Chronicity: acute Pancreatitis type: idiopathic Acute pancreatitis complication: no infection or necrosis Qualified Codes: K85.00 - Idiopathic acute pancreatitis without necrosis or infection HARISH QUINTERO DO Mar 03, 2018 10:29
--- NOTE | 2018-03-03 10:42 | Medical Nutrition Therapy ---
Nutrition Anthropometrics Height (Inches): 62.00 Height (Calculated Centimeters: 157.675967 Weight (Pounds): 166 Weight (Calculated Kilograms): 75.325 BMI: 30.4 Kevin Nutrition Score: Excellent Kevin Nutrition Risk Score: 23 Dietary Referral Nutrition Risk Factors: Nutrition Risk Comment: Physical Findings Physical Appearance: Obese BMI 30-39 Skin Appearance Skin Appearance: Edema Edema Location Modifier: Edema Location: Type of Edema: Degree of Edema: Gastrointestinal Symptoms GI Symtoms: Nausea, Vomiting Tube Present: Bowel Sounds: Recent Bowel Pattern: Diarrhea Stool Characteristics: Brown, Loose, Bright Red Blood Nutritional Diagnosis Nutritional Risk Acuity 2: Pancreatitis Nutritional Risk Acuity 3: Substance abuse Nutritional Acuity: 2-Moderate Nutrition Diagnosis: Increased Nutrient Needs Nutrition Etiology: Physiological Causes Nutrition Problem/Etiology/Sym: AEB dx pancreatitis with alb 2.2 Energy Requirement: 1900 (M- St J) Protein Requirement: 75 Diet Type: Clear Liquids Nutrition Intervention: Incr diet as tolerated Additional Diet Restrictions: OFFER CLEAR LIQUID SUPPLEMENT WHILE ON CLEAR LIQUIDS Nutrition Monitoring & Eval Nutrition Goals: Eat 75-100% Meal RD Patient Assessment Time: [address] Assessment Type: RD Assessment Patient Nutrition Acuity: 2-Moderate Follow Up Date: Mar 06, 2018 Nutritional Comment: 03/02 Pt admitted with pancreatitis. Alb 2.1, lipase 1626. Pt reporteing N/V. Pt reports take marylanauna. Currently on clear liquid diet. Will cont to monitor. HARPER 03/03 Pt cont on clear liquid diet but refusing all meals. Pt cont N/V which may be affecting intake. Lipase 1938, alb 2.2. Will offer clear liquid nutr supplment. Will cont to monitor. TEDDY ANN Mar 03, 2018 10:29
[2018-03-03] MEDS: LR(*) 1000 ML BAG 1,000 ML IV PRN (13:52)
[2018-03-03] MEDS ORDERED: diphenhydrAMINE 25 MG CAP PO ONE (20:35)
[2018-03-03] MEDS: traZODone HCL 50 MG TAB PO SCH (20:51)
[2018-03-03] MEDS: ARIPiprazole 10 MG TAB PO SCH (20:52)
[2018-03-03 21:03] VITALS: BP 118/73
[2018-03-04 02:28] VITALS: BP 114/60
[2018-03-04] MEDS: LR(*) 1000 ML BAG 1,000 ML IV PRN ×2 (03:55→18:16)
[2018-03-04 07:51] VITALS: BP 99/62
[2018-03-04] MEDS: ESTRADIOL/NORETHINDR ACETATE 1 EA TAB PO SCH (09:10)
[2018-03-04] MEDS: PANTOPRAZOLE SOD 40 MG IV VIAL IVP SCH (09:12)
[2018-03-04] MEDS: ESCITALOPRAM OXALATE 10 MG TAB PO SCH (09:12)
[2018-03-04] MEDS: TOPIRAMATE 25 MG TAB PO SCH ×2 (09:12→21:10)
[2018-03-04] MEDS ORDERED: SALINE 0.65% NAS SPR 44 ML BTL PRN (09:55)
[2018-03-04] MEDS ORDERED: diphenhydrAMINE 50 MG/ML VIAL IVP PRN (09:55)
--- NOTE | 2018-03-04 10:52 | Hospitalist Progress Note ---
Subjective Progress Notes Subjective She reports return of some appetite. She has had slight increase in bilious, watery stools. She states she has had bouts of diarrhea (non-bloody) around her menses since mid-adolescence. Physical Exam Vital Signs Date Time Temp Pulse Resp B/P (MAP) Pulse Ox O2 Delivery O2 Flow Rate FiO2 03/04/18 08:44 95 Room Air 03/04/18 07:51 98.5 72 16 99/62 (74) l Intake and Output 03/04/18 07:00 Intake Total 2020 ml Balance 2020 ml Intake Oral 0 ml IV Total 2020 ml # Voids 5 # Bowel Movements 5 # Emeses 1 General Appearance: Alert, Awake Cardiovascular: Regular Rate and Rhythm Respiratory: Clear to Auscultation GI: Soft and Non-Tender (BS present) Extremities: Warm, Perfused Psych: Alert & Oriented X3 Result Diagram: 03/03/1843 03/04/18521 Item Value Date Time Lipase 1970 U/L H 03/04/18521 Assessment and Plan Problems: (1) Pancreatitis Status: Acute Assessment & Plan: She does have an elevated lipase level, but her CT scan/MRCP do not show any findings consistent with pancreatitis. Her lipase levels have varied between 0684-5170, but there has been no change in her symptoms. It does not appear she has acute pancreatitis (or chronic for that matter), but may have a colitis/enteritis. (2) Colitis Status: Acute Assessment & Plan: Her CT scan did show findings consistent with a diffuse colitis. However, her inflammatory markers are negative and infectious studies have also been negative. Her MRI did show some apparent improvement. Dr. Reyes did discuss her case with gastroenterology, but no further recommendations were received. I feel she will require a colonoscopy and biopsy to rule out underlying inflammatory bowel disease. It sounds as if she may have had some mild disease since her mid-teens. (3) Vomiting Status: Acute Assessment & Plan: Improved. (4) Depression Assessment & Plan: Continue Lexapro, trazodone, Abilify. Exam Sepsis Risk: No Definite Risk Problem Qualifiers (1) Pancreatitis: Chronicity: acute Pancreatitis type: idiopathic Acute pancreatitis complication: no infection or necrosis Qualified Codes: K85.00 - Idiopathic acute pancreatitis without necrosis or infection JOVANY BATRES MD Mar 04, 2018 10:52
[2018-03-04] MEDS ORDERED: PEG (High)/E-LYTE SOLN 4000 ML PO ONE (13:00)
--- NOTE | 2018-03-04 13:15 | General Surgery Consultation ---
History of Present Illness Requesting Physician Dr. Mayte Jennings Reason for Consult Diarrhea, colitis on CT Chief Complaint Diarrhea History of Present Illness 22-year-old female who has been admitted to the hospitalist service for pancreatitis but on her initial CT it was revealed that she had areas of colonic thickening. Her lipase has been fluctuating between 1500 and 2000. They have been treating her for pancreatitis but she is not really been improving and they got an MRCP which was really unremarkable and the CT didn't really show signs of pancreatic inflammation nor did the MRI. She has had associated nausea and vomiting. Occasional abdominal discomfort but not very severe. They would like to have a colonoscopy to evaluate these areas of inflammation seen on imaging. The patient herself has had diarrhea on and off for years but worse in the last 2 months. No mucus or blood. She has no known family history of inflammatory bowel disease but no other GI issues. History Problems: (1) Depression Home Meds Active Scripts Metronidazole (FLAGYL) 500 Mg Tablet, 500 MG PO BID for 7 Days, #14 TAB Prov:BERTO NÚÑEZ MD 02/25/18 Reported Medications Topiramate (TOPAMAX) 50 Mg Tablet, 50 MG PO BID 02/25/18 Pantoprazole Sodium (PROTONIX) 40 Mg Grandr, 40 MG PO QDAY, PACK 02/25/18 Aripiprazole (ABILIFY) 20 Mg Tablet, 20 MG PO HS, TAB 02/25/18 Minocycline Hcl (MINOCYCLINE HCL) 100 Mg Capsule, 100 MG PO BID, CAPSULE 02/25/18 Trazodone Hcl (TRAZODONE HCL) 50 Mg Tablet, 50 MG PO QHS 02/25/18 Escitalopram Oxalate (LEXAPRO) 20 Mg Tablet, 20 MG PO QDAY, TAB 02/25/18 Ethinyl Estradiol/Drospirenone (OCELLA 3 MG-0.03 MG TABLET) 1 Each Tablet, 1 EACH PO DAILY 02/25/18 Allergies: Coded Allergies: Sulfa (Sulfonamide Antibiotics) (Verified Allergy, Intermediate, RASH, 03/01/18) Family History: FH: depression MOTHER FH: heart disease FATHER MOTHER FH: hyperlipidemia MOTHER FH: leukemia BROTHER OR SISTER Review of Systems All Systems Reviewed/Normal: Yes, Except as Noted Gastrointestinal: Nausea, Vomiting, Diarrhea, Abdominal Pain Exam Vital Signs Vital Signs Date Time Temp Pulse Resp B/P (MAP) Pulse Ox O2 Delivery O2 Flow Rate FiO2 03/04/18 08:44 95 Room Air 03/04/18 07:51 98.5 72 16 99/62 (74) General Appearance: Alert, Awake, No Acute Distress, Afebrile Neuro: No Gross deficits Eyes: PERRLA GI: Other (mild epigastric tenderness to palpation, no palpable mass or bulge) Extremities: Warm, Perfused Psych: Alert & Oriented X3, Appropriate Mood & Affect Medical Decision Making Data Points Result Diagram: 03/03/18 0543 03/04/18 0522 Assessment and Plan Problems: (1) Colitis Status: Acute Assessment & Plan: 03/04/18: Will start a bowel prep today. She can continue clear diet until midnight and then nothing to eat or drink after midnight. We will plan a colonoscopy with biopsies tomorrow morning. I have explained this plan to her in great detail as well as the alternatives and the risks. She indicates her understanding of this discussion and her questions have been answered. She would like to proceed with colonoscopy tomorrow morning. (2) Pancreatitis Status: Acute Condition Stable Time Spent: < 30 min Venous Thromboembolism Antithrombotics Is Pt On Any Antithrombotics?: No Problem Qualifiers (1) Pancreatitis: Chronicity: acute Pancreatitis type: idiopathic Acute pancreatitis complication: no infection or necrosis Qualified Codes: K85.00 - Idiopathic acute pancreatitis without necrosis or infection HARISH MOLINA MD Mar 04, 2018 13:15
[2018-03-04 15:13] VITALS: BP 103/66
[2018-03-04 19:18] VITALS: BP 112/73
[2018-03-04] MEDS: PROMETHAZINE 25 MG/ML 1 ML AMP IVP PRN (20:56)
[2018-03-04] MEDS: traZODone HCL 50 MG TAB PO SCH (21:10)
[2018-03-04] MEDS: ARIPiprazole 10 MG TAB PO SCH (21:11)
[2018-03-05] VITALS (9 sets, daily range): BP systolic 109–126; BP diastolic 66–84
[2018-03-05] MEDS ORDERED: NORMOSOL R SOLN(*) 1000 ML BAG 1,000 ML IV ONE (03:44)
--- NOTE | 2018-03-05 05:42 | General Surgery Progress Note ---
Subjective Progress Notes Subjective No new complaints this morning. Continued diarrhea. Physical Exam Vital Signs Date Time Temp Pulse Resp B/P (MAP) Pulse Ox O2 Delivery O2 Flow Rate FiO2 03/05/18 00:05 98.6 74 18 117/67 (84) 98 Room Air Intake and Output 03/05/18 07:00 Intake Total 2268 ml Balance 2268 ml Intake Oral 290 ml IV Total 1978 ml # Voids 2 # Bowel Movements 8 General Appearance: Alert, Awake, No Acute Distress, Afebrile GI: Soft and Non-Tender Extremities: Warm, Perfused Result Diagram: 03/03/18 0543 03/04/18 0522 Assessment and Plan Problems: (1) Colitis Status: Acute Assessment & Plan: 03/04/18: Will start a bowel prep today. She can continue clear diet until midnight and then nothing to eat or drink after midnight. We will plan a colonoscopy with biopsies tomorrow morning. I have explained this plan to her in great detail as well as the alternatives and the risks. She indicates her understanding of this discussion and her questions have been answered. She would like to proceed with colonoscopy tomorrow morning. 03/05/18: Will proceed with colonoscopy this morning. Pt wishes to proceed. (2) Pancreatitis Status: Acute Condition Stable. Time Spent: < 30 min Exam Sepsis Risk: No Definite Risk Problem Qualifiers (1) Pancreatitis: Chronicity: acute Pancreatitis type: idiopathic Acute pancreatitis complication: no infection or necrosis Qualified Codes: K85.00 - Idiopathic acute pancreatitis without necrosis or infection HARISH MOLINA MD Mar 05, 2018 05:42
[2018-03-05 06:38] LABS: PLATELET COUNT, AUTOMATED 241 K/uL (150-450)
[2018-03-05] MEDS ORDERED: PROPOFOL EMUL(*) 10MG/ML 20 ML 60 ML ONE (06:44)
[2018-03-05] MEDS ORDERED: LIDOCAINE MPF 1% 5 ML VIAL ONE (06:44)
--- NOTE | 2018-03-05 07:43 | Post Operative Progress Note ---
Post Operative Progress Note Date: Mar 05, 2018 Time: 07:37 Surgeon: Chema Dictation number: [id number] Anesthesia: TIVA by Dr. Otero Pre-Op Diagnosis: Colitis Post-Op Diagnosis: Colitis Findings: Mild inflammation throughout colon, worse in rectum and sigmoid colon. Very mild inflammation in 1st centimeter or 2 of TI. Ulcers on ICV. Procedure(s): Colonoscopy with biopsies Specimen Removed:(May be N/A): Terminal ileum Ileocecal valve Random colon Rectum Complications: None Fluids: See anesthesia record Estimated Blood Loss: minimal Date OP Note Dictated: Mar 05, 2018 Time OP Note Dictated: 07:38 HARISH MOLINA MD Mar 05, 2018 07:40
[2018-03-05] MEDS: ESTRADIOL/NORETHINDR ACETATE 1 EA TAB PO SCH (08:23)
[2018-03-05] MEDS: ESCITALOPRAM OXALATE 10 MG TAB PO SCH (08:24)
[2018-03-05] MEDS: TOPIRAMATE 25 MG TAB PO SCH ×2 (08:25→20:16)
[2018-03-05] MEDS: PANTOPRAZOLE SOD 40 MG IV VIAL IVP SCH (08:26)
[2018-03-05] MEDS: LR(*) 1000 ML BAG 1,000 ML IV PRN (09:46)
--- NOTE | 2018-03-05 10:50 | ULLRICH COLONOSCOPY ---
EVENT DATE: March 05, 2018 SURGEON: Gian Bear MD ANESTHESIOLOGIST: German Otero MD ANESTHESIA: General LMA, TIVA STATEMENT PROCESSOR: Staff PREOPERATIVE DIAGNOSIS 1. Colitis on CT. 2. Diarrhea. POSTOPERATIVE DIAGNOSIS 1. Colitis on CT. 2. Diarrhea. PROCEDURE PERFORMED Colonoscopy with biopsies. COMPLICATIONS None. CONDITION Stable. BLOOD LOSS Minimal. FINDINGS This patient had diffuse mild colitis with no ulcerations but mucosal edema and loss of vascular pattern throughout. The degree of inflammation was worse in the rectum and sigmoid colon but there were ulcers on the ileocecal valve. There were no ulcers elsewhere throughout the colon. The distal 1 to 2 cm of terminal ileum had very mild inflammation but no ulcers. SPECIMENS 1. Terminal ileum. 2. Ileocecal valve. 3. Random colon. 4. Rectum. INDICATIONS This is 22-year-old female who is admitted to the hospitalist service after presenting to the emergency department with abdominal pain with nausea and vomiting and diarrhea. She was seen on CT scan to have colitis and her lipase, interestingly, was around 2000. She was admitted with a presumed diagnosis of pancreatitis but her lipase had not been improving and she continued to have diarrhea. The hospitalist consulted me because of her CT findings of colitis and they requested endoscopy to try to evaluate the colitis. She has not had any evidence of inflammation on her pancreas on CT or on a subsequent MRCP, which was unremarkable. She has had diarrhea on and off for years but it has become worse in the last two months. She has not seen any mucous or blood in her stools. She does not know of any family history of inflammatory bowel disease. DESCRIPTION OF PROCEDURE The patient was brought to the endoscopy suite and placed in the left lateral decubitus position on their gurney. TIVA anesthesia was administered and a digital rectal exam was completed, which was unremarkable. The colonoscope was obtained and tested to ensure it was completely functional and was lubricated and inserted into her rectum through her anus. I advanced the scope with no difficulty all the way into the cecum and also into the terminal ileum and then slowly withdrew the scope, observing all mucosal surfaces for any abnormalities. The terminal ileum looked grossly normal except for some mild inflammation in the distal 1 to 2 cm. There were no ulcers there. I biopsied the terminal ileum both in the inflamed and noninflamed areas. As I withdrew into the cecum, I looked at the ileocecal valve, which had several ulcers on it and I biopsied these. The colonic mucosa had some areas of erythema but no ulcers. There were areas of loss of vascular pattern and mucosal edema. I took random biopsies through more of the pronounced inflamed areas throughout the colon. The inflammation seemed to get a little worse in the sigmoid colon and the rectum and I took separate biopsies of the rectum. I retroflexed the scope in the rectum and inspected the distal rectum of her anal canal. There was inflammation all the way to the anus. There were no other polyps, masses or other abnormalities. I then desufflated the rectum and then withdrew the scope from her body and she was then transported to the recovery room in good condition, having tolerated the procedure without any apparent problems. ROBLES
[2018-03-05] MEDS: predniSONE 20 MG TAB PO SCH (12:19)
[2018-03-05] MEDS ORDERED: INFLUENZA VIRUS VAC 0.5ML SYR IM ONLY ONE (12:20)
--- NOTE | 2018-03-05 13:38 | Hospitalist Progress Note ---
Subjective Progress Notes Subjective 22F admitted for pancreatitis and colitis. ANDRE overnight, completed bowel prep and colonoscopy this am. Patient Complains of: Gastrointestinal: No Nausea, No Vomiting Physical Exam Vital Signs Date Time Temp Pulse Resp B/P (MAP) Pulse Ox O2 Delivery O2 Flow Rate FiO2 03/05/18 11:30 84 98 03/05/18 09:30 112/67 (82) 03/05/18 08:15 Room Air 03/05/18 08:14 97.8 16 Intake and Output 03/05/18 07:00 Intake Total 2268 ml Balance 2268 ml Intake Oral 290 ml IV Total 1978 ml # Voids 2 # Bowel Movements 8 General Appearance: Alert, Awake, No Acute Distress Neuro: No Gross deficits Eyes: PERRLA ENT: Normal Neck: No Masses Cardiovascular: Normal Rhythm & Peripheral Pulses Respiratory: No Respiratory Distress GI: Soft and Non-Tender Musculoskeletal: No Weakness/Pain Extremities: Soft and Non Tender, Warm, Pulses, Perfused; No Edema Integumentary: Skin Intact without Lesion / Mass Psych: Alert & Oriented X3 Result Diagram: 03/05/18 0552 03/05/18 0552 Assessment and Plan Problems: (1) Colitis Status: Acute Assessment & Plan: Her CT scan did show findings consistent with a diffuse colitis. However, her inflammatory markers are negative and infectious studies have also been negative. Her MRI did show some apparent improvement. Dr. Reyes did discuss her case with gastroenterology, but no further recommendations were received. It sounds as if she may have had some mild disease since her mid-teens. Underwent colonoscopy with biopsies, evidence of diffuse, mild likely inflammatory colitis. Begin prednisone 40mg daily. (2) Elevated lipase Assessment & Plan: She does have an elevated lipase level, but her CT scan/MRCP do not show any findings consistent with pancreatitis. Her lipase levels have varied between 3543-9175, but there has been no change in her symptoms. It does not appear she has acute pancreatitis (or chronic for that matter), but may have a colitis/enteritis. (3) Vomiting Status: Acute Assessment & Plan: Improved. (4) Depression Assessment & Plan: Continue Lexapro, trazodone, Abilify. Exam Sepsis Risk: No Definite Risk FREITAS VARUN MARTÍNEZ DO Mar 05, 2018 13:38
[2018-03-05] MEDS: POTASSIUM CHL 20 MEQ TABCR PO SCH (17:13)
[2018-03-05] MEDS: traZODone HCL 50 MG TAB PO SCH (20:15)
[2018-03-05] MEDS: ARIPiprazole 10 MG TAB PO SCH (20:15)
[2018-03-06 03:11] VITALS: BP 103/56
[2018-03-06] MEDS ORDERED: ACETAMINOPHEN 500 MG TAB PO PRN (06:05)
[2018-03-06] MEDS ORDERED: diphenhydrAMINE 25 MG CAP PO PRN (06:05)
[2018-03-06 07:05] VITALS: BP 113/66
--- NOTE | 2018-03-06 07:42 | General Surgery Progress Note ---
Subjective Progress Notes Subjective Feeling much better today. "I feel great." Stools solidifying. Started on prednisone yesterday. Physical Exam Vital Signs Date Time Temp Pulse Resp B/P (MAP) Pulse Ox O2 Delivery O2 Flow Rate FiO2 03/06/18 07:05 97.8 69 16 113/66 (82) 97 Room Air Intake and Output 03/06/18 06:59 Intake Total 3002 ml Balance 3002 ml Intake Oral 640 ml IV Total 2362 ml # Voids 5 # Bowel Movements 2 General Appearance: Alert, Awake, No Acute Distress, Afebrile GI: Soft and Non-Tender Extremities: Warm, Perfused Result Diagram: 03/05/18 0552 03/06/18 0550 Assessment and Plan Problems: (1) Colitis Status: Acute Assessment & Plan: 03/04/18: Will start a bowel prep today. She can continue clear diet until midnight and then nothing to eat or drink after midnight. We will plan a colonoscopy with biopsies tomorrow morning. I have explained this plan to her in great detail as well as the alternatives and the risks. She indicates her understanding of this discussion and her questions have been answered. She would like to proceed with colonoscopy tomorrow morning. 03/05/18: Will proceed with colonoscopy this morning. Pt wishes to proceed. 03/06/18: Doing much better. Wants to go home. C-scope completed yesterday, mild inflammation throughout her colon with ulcerations limited to ileocecal valve. TI looked normal except distal centimeter with reactive inflammation. Suspect Crohn's colitis but can't definitively determine. Prometheus panel is being drawn. Pt doing better after 1 day of prednisone. OK for d/c to home today and I'll see her back in my office. I scheduled a f/u appt with me for 03/24/18, at 4:30pm. I recommend continuing prednisone at 40mg qday until her f/u appt and if she's doing well I'll start a long taper. (2) Pancreatitis Status: Acute Condition Stable. Time Spent: < 30 min Exam Sepsis Risk: No Definite Risk Problem Qualifiers (1) Pancreatitis: Chronicity: acute Pancreatitis type: idiopathic Acute pancreatitis complication: no infection or necrosis Qualified Codes: K85.00 - Idiopathic acute pancreatitis without necrosis or infection HARISH MOLINA MD Mar 06, 2018 07:41
[2018-03-06] MEDS: POTASSIUM CHL 20 MEQ TABCR PO SCH (08:05)
[2018-03-06] MEDS ORDERED: PANTOPRAZOLE SOD 20 MG TABEC PO SCH (09:05)
[2018-03-06] MEDS: predniSONE 20 MG TAB PO SCH (09:10)
[2018-03-06] MEDS: TOPIRAMATE 25 MG TAB PO SCH (09:11)
[2018-03-06] MEDS: ESCITALOPRAM OXALATE 10 MG TAB PO SCH (09:11)
[2018-03-06] MEDS: ESTRADIOL/NORETHINDR ACETATE 1 EA TAB PO SCH (09:12)
[2018-03-06] MEDS ORDERED: PANTOPRAZOLE SOD 40 MG TABEC PO SCH (09:20)
--- NOTE | 2018-03-06 10:33 | Medical Nutrition Therapy ---
Nutrition Anthropometrics Height (Inches): 62.00 Height (Calculated Centimeters: 157.495707 Weight (Pounds): 159 Weight (Calculated Kilograms): 72.121 BMI: 30.4 Kevin Nutrition Score: Probably Inadequate Kevin Nutrition Risk Score: 21 Dietary Referral Nutrition Risk Factors: Nutrition Risk Comment: Physical Findings Physical Appearance: Obese BMI 30-39 Skin Appearance Skin Appearance: Edema Edema Location Modifier: Edema Location: Type of Edema: Degree of Edema: Gastrointestinal Symptoms GI Symtoms: Nausea, Diarrhea, Change in Bowel Pattern Tube Present: Bowel Sounds: Recent Bowel Pattern: Diarrhea Stool Characteristics: Brown, Loose, Bright Red Blood Nutritional Diagnosis Nutritional Risk Acuity 3: Substance abuse, GI Bleed Nutritional Acuity: 2-Moderate Nutrition Diagnosis: Altered GI Function Nutrition Etiology: Physiological Causes Nutrition Problem/Etiology/Sym: Altered GI function related to physiologocal causes as evidenced by colonoscopy revealing mild inflammation thoughout and symptoms of N/V Energy Requirement: 1900 (M- St J) Protein Requirement: 75 Diet Type: Diet as Tolerated JUANY/REG Nutrition Intervention: Cont diet as ordered, Encourage intake Additional Diet Restrictions: OFFER CLEAR LIQUID SUPPLEMENT WHILE ON CLEAR LIQUIDS Nutrition Monitoring & Eval RD Patient Assessment Time: [address] Assessment Type: RD Re-Assessment Patient Nutrition Acuity: 2-Moderate Follow Up Date: Mar 11, 2018 Nutritional Comment: 03/02 Pt admitted with pancreatitis. Alb 2.1, lipase 1626. Pt reporteing N/V. Pt reports take maijauna. Currently on clear liquid diet. Will cont to monitor. BK 03/03 Pt cont on clear liquid diet but refusing all meals. Pt cont N/V which may be affecting intake. Lipase 1938, alb 2.2. Will offer clear liquid nutr supplment. Will cont to monitor. 03/06 Had colonoscopy on 03/05 which revealed mild inflammation throughout colon. Recently started on Prednisone and is feeling much better. No nausea. Diet advanced yesterday to JUANY and pt has had 100% intake of two meals. Notable labs include BUN 2, tot pro 4.6, alb 2.2 and lipase 1774. Will discharge home today. -SHAR LOMBARDI Mar 06, 2018 10:33
[2018-03-06 10:57] VITALS: BP 109/71
[2018-03-06] MEDS ORDERED: PRED20TA6 PO (14:02)
[2018-03-06] MEDS ORDERED: CLIN-60 PO (14:16)
--- NOTE | 2018-03-06 14:21 | Hospitalist Depart ---
Discharge Summary Reason for Hosp/Final Diag: (1) Colitis Status: Acute Hospital Course & Plan: Her CT scan did show findings consistent with a diffuse colitis. However, her inflammatory markers are negative. Her MRI did show some apparent improvement. Dr. Washington did discuss her case with gastroenterology, but they recommended usual treatment and didn't feel like there were any concerns with the lipase being elevated. It sounds as if she may have had some mild disease since her mid-teens. Underwent colonoscopy with biopsies, evidence of diffuse, mild likely inflammatory colitis. Prednisone 40mg daily has been started and will continue at that dose for at least a couple of weeks. One complicating factor is that her stool culture resulted Campylobacter jejuni today. Will send her on a 7 day course of Clindamycin. (2) Elevated lipase Hospital Course & Plan: She does have an elevated lipase level, but her CT scan/MRCP do not show any findings consistent with pancreatitis. Her lipase levels have varied between 6767-0649, but there has been no change in her symptoms. It does not appear she has acute pancreatitis (or chronic for that matter), but may have a colitis/enteritis causing it. Symptomatically, she is doing well. Will defer to Dr. Molina for further testing. (3) Vomiting Status: Resolved Hospital Course & Plan: Improved. (4) Depression Hospital Course & Plan: Continue Lexapro, trazodone, Abilify. Departure Weight (Pounds): 159 Weight (Ounces): 1.0 Result Diagram: 03/05/1855103/06/18 0550 Item Value Date Time White Blood Count 8.7 k/uL 03/01/18 2040 Neutrophils (%) (Auto) 75.4 % H 03/01/18 2040 Neutrophils (%) (Auto) 41.1 % 03/02/18 0628 Neutrophils (%) (Auto) 64.2 % 03/03/18 0543 Neutrophils (%) (Auto) 45.6 % 03/05/18551 White Blood Count 6.8 k/uL 03/05/18 0552 White Blood Count 9.1 k/uL 03/03/18 0543 White Blood Count 7.9 k/uL 03/02/18 0628 Erythrocyte Sedimentation Rate 5 mm/HOUR 03/01/182039 Amylase Level 215 U/L H 03/01/18 2040 Lipase 2758 U/L H 03/01/18 2040 Total Protein 6.1 g/dl L 03/01/18 2040 Albumin 3.0 g/dl L 03/01/18 204 Lactate 1.2 mmol/L 03/01/18 204 Calcium Level 8.8 mg/dl 03/01/182039 Total Bilirubin 0.4 mg/dl 03/01/182039 Alanine Aminotransferase (ALT/SGPT) 36 U/L 03/01/18 204 Alkaline Phosphatase 107 U/L 03/01/18 204 Aspartate Amino Transf (AST/SGOT) 28 U/L 03/01/18 204 Blood Urea Nitrogen 11 mg/dl 03/01/182039 Creatinine 0.80 mg/dl 03/01/182039 Carbon Dioxide Level 18 mmol/L L 03/01/182039 Chloride Level 109 mmol/L H 03/01/182039 Potassium Level 3.3 mmol/L L 03/01/182039 Sodium Level 140 mmol/L 03/01/182039 C-Reactive Protein 0.8 mg/dl 03/01/18 204 Human Chorionic Gonadotropin, Qual Negative 03/02/18 0517 Total Protein 4.5 g/dl L 03/02/18 0517 Albumin 2.1 g/dl L 03/02/18 0517 Triglycerides Level 43 mg/dl 03/02/18 0517 Amylase Level 129 U/L H 03/02/18 0517 Lipase 1626 U/L H 03/02/18 0517 Creatinine 0.70 mg/dl 03/02/18 0517 Blood Urea Nitrogen 10 mg/dl 03/02/18 0517 Blood Urea Nitrogen 7 mg/dl 03/03/18 0543 Creatinine 0.70 mg/dl 03/03/18 0543 Carbon Dioxide Level 15 mmol/L L 03/03/18 0543 Carbon Dioxide Level 18 mmol/L L 03/02/18 0517 Carbon Dioxide Level 17 mmol/L L 03/04/18 0522 Carbon Dioxide Level 18 mmol/L L 03/05/18 0552 Carbon Dioxide Level 20 mmol/L L 03/06/18 0550 Blood Urea Nitrogen 2 mg/dl L 03/06/18 0550 Blood Urea Nitrogen 3 mg/dl L 03/05/18 0552 Blood Urea Nitrogen 5 mg/dl L 03/04/18 0522 Creatinine 0.60 mg/dl 03/04/18 0522 Creatinine 0.60 mg/dl 03/05/18 05 Creatinine 0.70 mg/dl 03/06/18 0550 Lipase 1774 U/L H 03/05/18 0552 Lipase 1970 U/L H 03/04/18 0522 Lipase 1938 U/L H 03/03/18 0543 Total Bilirubin 0.3 mg/dl 03/05/18 0552 Aspartate Amino Transf (AST/SGOT) 33 U/L 03/05/18 0552 Alanine Aminotransferase (ALT/SGPT) 34 U/L 03/05/18 0552 Alkaline Phosphatase 84 U/L 03/05/18551 Urine RBC None /HPF 03/01/181947 Urine WBC 6 /HPF 03/01/181947 Urine Squamous Epithelial Cells Few /LPF 03/01/181947 Urine Calcium Oxalate Crystals Few /HPF H 03/01/181947 Urine Bacteria Moderate /HPF H 03/01/181947 Urine Mucus Few /HPF 03/01/181947 Urine Leukocyte Esterase Trace H 03/01/181947 Stool Leukocytes, Qualitative Positive 03/02/18 1457 Clostridium Difficile Toxin A & B Negative 03/02/182009 Clostridium difficile Antigen Negative 03/02/182009 SPEC #: [id number] SARAH: 03/02/18 STATUS: COMP REQ #: [id number] RECD: 03/02/[address]: VARUN CORNELIUS DO SOURCE: STOOL ENTR: 03/02/[address]: CAROLINA HANSON [employer] [facility]: ORDERED: CULT STOOL/GS COMMENTS: Has specimen been collected/obtained? Y Procedure Result Verified GRAM STAIN Final 03/02/18-0130 MANY GRAM NEGATIVE RODS FEW GRAM POSITIVE COCCI RARE EPITHELIAL CELLS NO WHITE BLOOD CELLS SEEN STOOL CULTURE Final 03/06/18-1113 Organism 1 CAMPYLOBACTER JEJUNI 1+ GROWTH Imaging 03/02/18 MRCP - Pancreas and biliary tree appear unremarkable There is thickening of the wall of the right side of the colon and transverse colon which is slightly improved when compared the prior study. The left-sided colon appears much less thickened. These changes are still concerning for colitis. 03/02/18 GB US - 1. No acute findings. 2. Nonspecific slight increased echogenicity of the pancreas. 3. Possible mild hepatic steatosis. Condition: Improved Discharge: Home Discharge Instructions Home Meds Active Scripts Clindamycin Hcl (CLEOCIN HCL) 150 Mg Capsule, 450 MG PO TID, #63 CAPSULE Prov:TAWANNA WASHINGTON MD 03/06/18 Prednisone (PREDNISONE) 20 Mg Tablet, 40 MG PO QDAY, #40 Prov:TAWANNA WASHINGTON MD 03/06/18 Reported Medications Topiramate (TOPAMAX) 50 Mg Tablet, 50 MG PO BID 02/25/18 Pantoprazole Sodium (PROTONIX) 40 Mg Granpkt.dr, 40 MG PO QDAY, PACK 02/25/18 Aripiprazole (ABILIFY) 20 Mg Tablet, 20 MG PO HS, TAB 02/25/18 Minocycline Hcl (MINOCYCLINE HCL) 100 Mg Capsule, 100 MG PO BID, CAPSULE 02/25/18 Trazodone Hcl (TRAZODONE HCL) 50 Mg Tablet, 50 MG PO QHS 02/25/18 Escitalopram Oxalate (LEXAPRO) 20 Mg Tablet, 20 MG PO QDAY, TAB 02/25/18 Ethinyl Estradiol/Drospirenone (OCELLA 3 MG-0.03 MG TABLET) 1 Each Tablet, 1 EACH PO DAILY 02/25/18 Discontinued Scripts Metronidazole (FLAGYL) 500 Mg Tablet, 500 MG PO BID for 7 Days, #14 TAB Prov:BERTO NÚÑEZ MD 02/25/18 Diet: Regular Activity: As Tolerated Special Instructions: Follow up with Dr. Molina on 03/24, as scheduled. Go to the ER for fevers, worsening diarrhea and nausea. Copies to: CAROLINA HANSON; HARISH MOLINA MD ; Venous Thromboembolism Antithrombotics Is Pt On Any Antithrombotics?: No TAWANNA WASHINGTON MD Mar 06, 2018 14:21
== END 2018-03-06 15:00 | disposition home or self-care (01) | DRG 372 ==
LOC: ER 20:20 → MED 22:19
PROVIDERS: ADMIT Internal Medicine; ATTEND Internal Medicine
PROC: 0DBB8ZX Excision of Ileum, Via Natural or Artificial Opening Endoscopic, Diagnostic (ICD-10-PCS; 2018-03-05)
PROC: 0DBE8ZX Excision of Large Intestine, Via Natural or Artificial Opening Endoscopic, Diagnostic (ICD-10-PCS; 2018-03-05)
PROC: 0DBP8ZX Excision of Rectum, Via Natural or Artificial Opening Endoscopic, Diagnostic (ICD-10-PCS; 2018-03-05)
PROC: 0DBC8ZX Excision of Ileocecal Valve, Via Natural or Artificial Opening Endoscopic, Diagnostic (ICD-10-PCS; principal; 2018-03-05 07:00)
DX: A04.5 Campylobacter enteritis (principal); K63.3 Ulcer of intestine; F33.9 Major depressive disorder, recurrent, unspecified; R74.8 Abnormal levels of other serum enzymes; Z23 Encounter for immunization; Z88.2 Allergy status to sulfonamides; F41.8 Other specified anxiety disorders; K21.9 Gastro-esophageal reflux disease without esophagitis; F41.9 Anxiety disorder, unspecified
CPT/HCPCS: 36415; 74183; 76705; 81001; 81223; 81404; 81405; 82040; 82150; 82247; 82310; 82374; 82435; 82565; 82947; 83516; 83605; 83630; 83690; 84075; 84132; 84155; 84295; 84450; 84460; 84478; 84520; 84703; 85025; 85651; 86140; 87045; 87077; 87205; 87324; 87449; 88305; 90471; 90674; 96361; 96374; 96375; A9577; C9113; J1170; J1200; J2001; J2405; J2550; J2704; J3480; J7030; J7050; J7120; J7512; Q0163

== ENCOUNTER → 2018-06-22 | Outpatient (CLI) | payer OTHER ==
[2018-03-02 12:44] VITALS: BMI 29.8
[~2018-06-22] MED LIST changes: +CLIN-60 PO; +PRE5 PO; +PRED20TA6 PO
[2018-06-22 12:19] LABS: PLATELET COUNT, AUTOMATED 291 K/uL (150-450)
== END ==
LOC: LAB 11:36
PROVIDERS: ATTEND Surgery
DX: K52.9 Noninfective gastroenteritis and colitis, unspecified (principal); R11.2 Nausea with vomiting, unspecified; R19.7 Diarrhea, unspecified
CPT/HCPCS: 36415; 82040; 82247; 82248; 82310; 82374; 82435; 82565; 82947; 83690; 84075; 84132; 84155; 84295; 84450; 84460; 84520; 85025; 85651; 86140

== ENCOUNTER → 2018-06-29 | Outpatient (CLI) | payer OTHER ==
[2018-03-02 12:44] VITALS: BMI 29.8
[~2018-06-29] MED LIST changes: +IOPAMIDOL 61% 75 ML INFUS BTL 75 ML ONE
--- NOTE | 2018-06-29 13:33 | RADIOLOGY IMAGING REPORT ---
FACILITY: [facility] - [place], [place] PATIENT NAME: Samra Vogel : 1995 MR: [id number] V: [id number] EXAM DATE: ORDERING PHYSICIAN: HARISH MOLINA TECHNOLOGIST: Location: [facility] - [place] Patient: Samra Vogel : 1995 Visit/Account:[id number] Date of Sevice: 06/29/2018 CT ABDOMEN PELVIS W/ CON HISTORY: Colitis, nausea and vomiting for 3 months. TECHNIQUE: CT abdomen and pelvis 75 cc of Isovue 370 IV. One of the following dose optimization shimon hniques was utilized in the performance of this exam: automated exposure control; adjustment of the m A and/or kV according to the patient's size; or use of an iterative reconstruction technique. Specif ic details can be referenced in the facility's radiology CT exam operational policy. COMPARISON: None. FINDINGS: Liver/gallbladder: The liver demonstrates normal enhancement. Gallbladder is unremarkable. Spleen: Normal. Adrenals: Normal. Pancreas: Normal enhancement without evidence of mass. Kidneys/: The right and left kidney demonstrate normal enhancement without evidence of hydronephro sis or mass. Both ureters are normal. Pelvis: Urinary bladder is normal. GI: There is no focal abnormality in the small bowel or colon. Vessels/spaces/nodes: Negative. Bones/soft tissues: There are no lytic or blastic bone lesions. Soft tissues are normal. Visualized lung bases: Clear. IMPRESSION: Normal CT of the abdomen and pelvis. Report Dictated By: Randall Wallace at 06/29/2018 1:25 PM Report E-Signed By: Randall Wallace at 06/29/2018 1:27 PM WSN:[email or web address]
== END ==
LOC: CT 01:56
PROVIDERS: ATTEND Surgery
DX: R19.7 Diarrhea, unspecified (principal)
CPT/HCPCS: 74177; Q9967